=== PATIENT | female | born 1990 | race Two or more races ===

== ENCOUNTER 2023-04-17 00:59 | Emergency (ER) | payer MEDICAID ==
[~2023-04-17] VITALS: Ht 157.5 cm; Wt 63.6 kg
[2023-04-17 01:36] VITALS: BP 134/93; PULSE 89; RESP 14; TEMP 98.6; O2SAT 100
== END 2023-04-17 06:25 | disposition left against medical advice (07) ==
LOC: ER 01:00
DX: T83.89XA Other specified complication of genitourinary prosthetic devices, implants and grafts, initial encounter (principal); N93.9 Abnormal uterine and vaginal bleeding, unspecified; Z53.21 Procedure and treatment not carried out due to patient leaving prior to being seen by health care provider; Y83.8 Other surgical procedures as the cause of abnormal reaction of the patient, or of later complication, without mention of misadventure at the time of the procedure; Y92.89 Other specified places as the place of occurrence of the external cause
CPT/HCPCS: 74018; 99281